=== PATIENT | female | born 1955 | race Caucasian/White ===

== ENCOUNTER 2017-01-04 | Outpatient (CLI) | payer OTHER | END 2017-01-04 23:31 | disposition critical access hospital (66) | CPT/HCPCS: A0425; A0429 ==

== ENCOUNTER 2017-01-05 00:05 | Emergency (ER) | payer OTHER | END 2017-01-05 06:33 | disposition home or self-care (01) | DX: F10.129 Alcohol abuse with intoxication, unspecified (principal); Z91.81 History of falling; F17.200 Nicotine dependence, unspecified, uncomplicated; E07.89 Other specified disorders of thyroid ==

== ENCOUNTER 2017-05-21 09:33 | Outpatient (CLI) | payer OTHER ==
[2017-05-21 18:59] LABS: ALBUMIN/GLOBULIN RATIO 1.2 (1.0-2.2); BILIRUBIN,TOTAL 0.7 mg/dL (0.2-1.0); CREATININE 0.9 mg/dL (0.4-1.0); POTASSIUM 4.2 mmol/L (3.5-5.0); TOTAL PROTEIN 7.9 g/dL (6.7-8.2)
[2017-05-21 19:30] LABS: EOSINOPHILS # (AUTO) 0.1 10^3/uL (0.0-0.7); EOSINOPHILS % (AUTO) 2.4 %; HCT - HEMATOCRIT 43.2 % (37.0-47.0); HGB - HEMOGLOBIN 14.2 g/dL (12.0-16.0); LYMPHOCYTES # (AUTO) 1.9 10^3/uL (1.5-3.5); LYMPHOCYTES % (AUTO) 38.9 %; MEAN CORPUSCULAR HEMOGLOBIN 29.5 pg (27.0-31.0); MEAN CORPUSCULAR HGB CONC 32.8 g/dL (32.0-36.0); MEAN CORPUSCULAR VOLUME 89.8 fL (81.0-99.0); MEAN PLATELET VOLUME 6.9 fL (7.9-10.8); MONOCYTES # (AUTO) 0.4 10^3/uL (0.0-1.0); MONOCYTES % (AUTO) 9.2 %; NEUTROPHILS # (AUTO) 2.3 10^3/uL (1.5-6.6); NEUTROPHILS % (AUTO) 48.5 %; NUCLEATED RED BLOOD CELLS AUTO 0.1 /100WBC; RED BLOOD COUNT 4.81 10^6/uL (4.20-5.40); RED CELL DISTRIBUTION WIDTH 14.1 % (12.0-15.0); UNCORRECTED WHITE BLOOD COUNT 4.8 x10^3/uL; WHITE BLOOD COUNT 4.8 x10^3/uL (4.8-10.8)
== END 2017-05-21 09:34 | disposition home or self-care (01) ==
LOC: LAB.F 09:33
PROVIDERS: ATTEND Physician Assistant Medical
DX: Z79.899 Other long term (current) drug therapy (principal)
CPT/HCPCS: 36415; 80053; 85025

== ENCOUNTER 2020-02-12 09:05 | Inpatient (IN) | payer OTHER ==
--- NOTE | 2020-02-12 09:34 | ED Physician Documentation ---
PD HPI DYSPNEA - Stated complaint Stated Complaint: SOA - Chief complaint Chief Complaint: Cardiac - History obtained from History obtained from: Patient - History of Present Illness Timing - onset: How many weeks ago (1-2) Timing - duration: Weeks (1-2) Timing - details: Gradual onset, Still present Inciting event(s): Other (She has noticed progressive edema of the legs and then hands and whole-body over 1-1/2 to 2 weeks. She has noticed orthopnea and dyspnea on exertion particularly the last several days. She denies any itching's nor any swelling of her lips tongue or throat. She is having some chest tightness with the shortness of breath the last day. She had trouble sleeping last night. No history of heart disease or CHF. Normal urination though may be decreased amount overall.). No: URI Associated symptoms: Bilateral edema (And then progressing to hands abdomen and feeling of dyspnea. She denies any swelling of her lips throat or tongue. She has not had any rash or hives.). No: Fever, Cough, Hemoptysis, Wheezing Similar symptoms before: Has not had sx before Recently seen: Not recently seen Review of Systems Constitutional: denies: Fever, Chills, Myalgias Nose: denies: Rhinorrhea / runny nose, Congestion Throat: denies: Sore throat Cardiac: reports: Chest pain / pressure, Pedal edema. denies: Palpitations, Calf pain Respiratory: reports: Dyspnea. denies: Cough, Wheezing GI: denies: Abdominal Pain, Nausea, Vomiting, Diarrhea : denies: Dysuria, Frequency Musculoskeletal: denies: Neck pain, Back pain Neurologic: reports: Generalized weakness. denies: Focal weakness, Numbness PD PAST MEDICAL HISTORY - Past Medical History Cardiovascular: None Respiratory: None Endocrine/Autoimmune: None - Past Surgical History Past Surgical History: Yes General: Hiatal hernia repair, Other Ortho: Spine surgery - Present Medications Home Medications: Ambulatory Orders Medication Instructions Recorded Confirmed No Known Home Medications 01/05/17 02/12/20 - Allergies Allergies/Adverse Reactions: Allergies Allergy/AdvReac Type Severity Reaction Status Date / Time No Known Drug Allergies Allergy Verified 02/12/20 09:15 - Social History Does the pt smoke?: Yes Smoking Status: Current every day smoker Does the pt drink ETOH?: No Does the pt have substance abuse?: Yes Substance Use and Type: Marijuana - Immunizations Immunizations are current?: Yes - POLST Patient has POLST: No PD ED PE NORMAL - Vitals Vital signs reviewed: Yes - General General: Alert and oriented X 3, No acute distress, Well developed/nourished - HEENT HEENT: Moist mucous membranes, Pharynx benign - Cardiac Cardiac: RRR, No murmur - Respiratory Respiratory: No respiratory distress. No: Clear bilaterally (crackles both sides about 1/3 up. ) - Abdomen Abdomen: Soft, Non tender - Female Female : Deferred - Rectal Rectal: Deferred - Derm Derm: Normal color, Warm and dry - Extremities Extremities: Normal ROM s pain, No calf tenderness / cord, Other (2-3+ edema in both legs up to the knees. There is no redness nor warmth. Calves are nontender.) - Neuro Neuro: Alert and oriented X 3, No motor deficit, No sensory deficit Eye Opening: Spontaneous Motor: Obeys Commands Verbal: Oriented GCS Score: 15 Results - Vitals Vitals: Vital Signs - 24 hr 02/12/20 02/12/20 02/12/20 09:13 09:46 10:36 Temperature 37.0 C Heart Rate 103 H 87 89 Respiratory 26 H 24 26 H Rate Blood Pressure 136/97 H 135/95 H O2 Saturation 98 99 100 02/12/20 02/12/20 11:09 11:22 Temperature Heart Rate 87 99 Respiratory 22 22 Rate Blood Pressure 105/75 125/101 H O2 Saturation 98 100 Oxygen O2 Source Room air - EKG (time done) 09:34 Rate: Rate (enter#) (98) Rhythm: NSR [place]: Normal Intervals: Normal NC QRS: Normal Ischemia: Normal ST segments. No: ST elevation c/w ischemia, ST depression - Labs Labs: Laboratory Tests 02/12/20 02/12/20 02/12/20 09:40 09:40 09:40 WBC 9.4 RBC 4.98 Hgb 14.6 Hct 44.8 MCV 90.0 MCH 29.3 MCHC 32.6 RDW 14.2 Plt Count 315 MPV 8.6 Neut # (Auto) 6.1 Lymph # (Auto) 2.4 Cooke # (Auto) 0.7 Eos # (Auto) 0.1 Baso # (Auto) 0.1 Absolute Nucleated RBC 0.00 Nucleated RBC % 0.0 Sodium 134 L Potassium 3.7 Chloride 107 Carbon Dioxide 19 L Anion Gap 8.0 BUN 29 H Creatinine 1.1 H Estimated GFR (MDRD) 50 L Glucose 100 Calcium 8.7 Magnesium Total Bilirubin 0.7 AST 66 H ALT 56 Alkaline Phosphatase 92 Troponin I High Sens 47.9 H* B-Natriuretic Peptide Total Protein 6.6 L Albumin 3.2 Globulin 3.4 Albumin/Globulin Ratio 0.9 L Lipase 27 Urine Color Urine Clarity Urine pH Ur Specific [place] Urine Protein Urine Glucose (UA) Urine Ketones Urine Occult Blood Urine Nitrite Urine Bilirubin Urine Urobilinogen Ur Leukocyte Esterase Urine RBC Urine WBC Urine WBC Clumps Ur Squamous Epith Cells Urine Bacteria Ur Microscopic Review Urine Culture Comments Urine Opiates Screen Ur Oxycodone Screen Urine Methadone Screen Ur Propoxyphene Screen Ur Barbiturates Screen Ur Tricyclics Screen Ur Phencyclidine Scrn Ur Amphetamine Screen U Methamphetamines Scrn U Benzodiazepines Scrn Urine Cocaine Screen U Cannabinoids Screen Ethyl Alcohol 02/12/20 02/12/20 02/12/20 09:40 09:40 11:05 WBC RBC Hgb Hct MCV MCH MCHC RDW Plt Count MPV Neut # (Auto) Lymph # (Auto) [place]oke # (Auto) Eos # (Auto) Baso # (Auto) Absolute Nucleated RBC Nucleated RBC % Sodium Potassium Chloride Carbon Dioxide Anion Gap BUN Creatinine Estimated GFR (MDRD) Glucose Calcium Magnesium 2.4 Total Bilirubin AST ALT Alkaline Phosphatase Troponin I High Sens B-Natriuretic Peptide 2505 H Total Protein Albumin Globulin Albumin/Globulin Ratio Lipase Urine Color YELLOW Urine Clarity CLEAR Urine pH 6.0 Ur Specific Redkey 1.015 Urine Protein 30 H Urine Glucose (UA) NEGATIVE Urine Ketones NEGATIVE Urine Occult Blood TRACE-LYSE Urine Nitrite NEGATIVE Urine Bilirubin NEGATIVE Urine Urobilinogen 0.2 (NORMAL) Ur Leukocyte Esterase NEGATIVE Urine RBC 0-5 Urine WBC 0-3 Urine WBC Clumps PRESENT Ur Squamous Epith Cells RARE Squamous Urine Bacteria Rare Ur Microscopic Review INDICATED Urine Culture Comments NOT INDICATED Urine Opiates Screen NEGATIVE Ur Oxycodone Screen NEGATIVE Urine Methadone Screen NEGATIVE Ur Propoxyphene Screen NEGATIVE Ur Barbiturates Screen NEGATIVE Ur Tricyclics Screen NEGATIVE Ur Phencyclidine Scrn NEGATIVE Ur Amphetamine Screen POSITIVE H U Methamphetamines Scrn POSITIVE H U Benzodiazepines Scrn NEGATIVE Urine Cocaine Screen NEGATIVE U Cannabinoids Screen NEGATIVE Ethyl Alcohol < 5.0 - Rads (name of study) chest Radiology: Prelim report reviewed, See rad report (bilateral pleural effusions and atelectasis.) PD MEDICAL DECISION MAKING - ED course Complexity details: considered differential (New onset CHF in the last couple of weeks. It does not appear to be nephrotic or renal failure or liver. Presume new onset heart failure without known heart disease. Her sats are good but she is having significant symptoms. Concern would be ischemic cause that she has had chest tightness particularly of the last couple of days. Needs to be evaluated for potential ischemic heart disease/ACS as well as evaluation of the new onset CHF.), d/w patient Departure - Departure Disposition: ED Place in Observation Clinical Impression: New onset of congestive heart failure, Chest pain, rule out acute myocardial infarction Dyspnea Qualifiers: Dyspnea type: shortness of breath Qualified Code(s): R06.02 - Shortness of breath Condition: Stable Record reviewed to determine appropriate education?: Yes Discharge Date/Time: 02/12/20 12:59
[2020-02-12 09:51] LABS: BASOPHILS # (AUTO) 0.1 10^3/uL (0.0-0.1); BASOPHILS % (AUTO) 0.7 %; EOSINOPHILS # (AUTO) 0.1 10^3/uL (0.0-0.7); EOSINOPHILS % (AUTO) 1.3 %; HGB - HEMOGLOBIN 14.6 g/dL (12.0-16.0); LYMPHOCYTES # (AUTO) 2.4 10^3/uL (1.5-3.5); MEAN CORPUSCULAR HEMOGLOBIN 29.3 pg (27.0-31.0); MEAN CORPUSCULAR HGB CONC 32.6 g/dL (32.0-36.0); MEAN PLATELET VOLUME 8.6 fL (7.9-10.8); MONOCYTES # (AUTO) 0.7 10^3/uL (0.0-1.0); MONOCYTES % (AUTO) 7.2 %; NEUTROPHILS # (AUTO) 6.1 10^3/uL (1.5-6.6); NEUTROPHILS % (AUTO) 65.5 %; PLT - PLATELET COUNT 315 10^3/uL (130-450); RED BLOOD COUNT 4.98 10^6/uL (4.20-5.40); RED CELL DISTRIBUTION WIDTH 14.2 % (12.0-15.0); WHITE BLOOD COUNT 9.4 x10^3/uL (4.8-10.8)
[2020-02-12] MEDS ORDERED: FUROSEMIDE 40 MG/4 ML VIAL IVP STA (10:03)
[2020-02-12 10:07] LABS: ALBUMIN 3.2 g/dL (3.2-5.5); ALBUMIN/GLOBULIN RATIO 0.9 (1.0-2.2); BILIRUBIN,TOTAL 0.7 mg/dL (0.2-1.0); CALCIUM 8.7 mg/dL (8.5-10.3); CREATININE 1.1 mg/dL (0.4-1.0); TOTAL PROTEIN 6.6 g/dL (6.7-8.2)
--- NOTE | 2020-02-12 10:11 | XRAY Report ---
Reason: Chest pain Procedure Date: 02/12/2020 Accession Number: [id number] / [id number] Procedure: XR - Chest 1 View X-Ray CPT Code: 07309 Final Report FULL RESULT: EXAM: CHEST RADIOGRAPHY EXAM DATE: 02/12/2020 09:58 AM. CLINICAL HISTORY: Chest pain. COMPARISON: RIBS 3 VIEW BILAT 01/05/2017 1:09 AM. TECHNIQUE: 1 view. FINDINGS: Lungs/Pleura: There are small bibasal pleural effusions with bibasal compressive atelectasis. There is no consolidation. There are no pneumothoraces. Mediastinum: There is mild cardiac enlargement. Other: There is severe bilateral glenohumeral osteoarthritis. IMPRESSION: Small bilateral pleural effusions with compressive atelectasis of the lung bases. RADIA
[2020-02-12 10:20] LABS: MAGNESIUM 2.4 mg/dL (1.7-2.8)
[2020-02-12] MEDS ORDERED: NITROGLYCERIN 2% PASTE TOP STA (11:09)
[2020-02-12 11:14] LABS: MUDS CUTOFF CONCENTRATIONS CUTOFF CONC BELOW:
[2020-02-12 11:17] LABS: BILIRUBIN,URINE NEGATIVE (NEGATIVE); GLUCOSE, URINE (UA) NEGATIVE (NEGATIVE); KETONES,URINE (UA) NEGATIVE (NEGATIVE); LEUKOCYTE ESTERASE, URINE NEGATIVE (NEGATIVE); NITRITE,URINE NEGATIVE (NEGATIVE); OCCULT BLOOD,URINE TRACE-LYSE (NEGATIVE); PROTEIN,URINE 30 mg/dL (NEGATIVE); UROBILINOGEN,URINE 0.2 (NORMAL) E.U./dL (NORMAL)
[2020-02-12 11:18] LABS: CLARITY,URINE CLEAR (CLEAR)
[2020-02-12 11:28] LABS: AMPHETAMINE SCREEN,URINE POSITIVE (NEGATIVE); BENZODIAZEPINES SCREEN, URINE NEGATIVE (NEGATIVE); COCAINE SCREEN URINE NEGATIVE (NEGATIVE); METHADONE SCREEN, URINE NEGATIVE (NEGATIVE); METHAMPHETAMINES SCREEN, URINE POSITIVE (NEGATIVE); OPIATE SCREEN, URINE NEGATIVE (NEGATIVE); OXYCODONE SCREEN, URINE NEGATIVE (NEGATIVE); PROPOXYPHENE SCREEN, URINE NEGATIVE (NEGATIVE); TRICYCLIC ANTIDEPRESSANT,URINE NEGATIVE (NEGATIVE)
[2020-02-12 11:32] LABS: BACTERIA,URINE Rare /HPF (None Seen); RBC,URINE 0-5 /HPF (0-5); SQUAMOUS EPITHELIAL CELL,UR RARE Squamous (<= Few); WBC CLUMPS,URINE PRESENT
[2020-02-12] MEDS ORDERED: oxyCODONE 5 MG TABLET PO PRN (11:32)
[2020-02-12] MEDS ORDERED: SODIUM CHLORIDE FLUSH 0.9% 10 ML SYRINGE IVP PRN (11:32)
[2020-02-12] MEDS ORDERED: ONDANSETRON ODT 4 MG TABLET TL PRN (11:32)
[2020-02-12] MEDS ORDERED: ACETAMINOPHEN 325 MG TABLET PO PRN (11:32)
[2020-02-12] MEDS ORDERED: MORPHINE 2 MG/ML CARPUJECT IVP PRN (11:32)
--- NOTE | 2020-02-12 12:57 | HISTORY & PHYSICAL EXAMINATION ---
Chief Complaint - Chief Complaint Chief Complaint: Shortness of breath on exertion History of Present Illness - Admitted From Admitted From:: Emergency department - History Obtained From Records Reviewed: Emergency department History obtained from: Patient and ED physician, Dr. Arizmendi Exam Limitations: None - History of Present Illness HPI Comment/Other: Patient is a 64-year-old female with no known past medical history who presents with about 1 week of progressively worsening shortness of breath, dyspnea on exertion, and orthopnea.She does not recall any specific inciting events to the symptoms, and does not recall any other upper respiratory infections, including no fever, no cough, congestion, runny nose, or other symptoms of flu.She also notes that her hands bilaterally started to turn red about 2 to 3 days ag o.Denies any pain in the bilateral hands. She does also endorse a variable and intermittent chest heaviness that she describes as similar to heartburn, located in the upper left and right side of the chest. She does not recall any particular pattern such as worse with exertion or any other alleviating factors. She also notes pants getting tighter, legs are swelling, but has avoided coming in because of the current coronavirus pandemic fearing that she would get exposed if she came to the hospital.Eventually when the symptoms became too much to bear she came to the emergency room for evaluation. In the ER, she was saturating well on room air, with relatively normal vital signs, and an EKG unremarkable for any acute findings. Chest x-ray Showed bilateral small pleural effusions. Her BNP was elevated however, as was her troponin. She was given a single dose of Lasix IV, and hospital medicine admission was requested for management of new diagnosis of CHF and ruling out MD. History - Past Medical History Cardiovascular: reports: None Respiratory: reports: None Endocrine/Autoimmune: reports: None GI: reports: GERD MRSA Hx?: No - Past Surgical History General: reports: Hiatal hernia repair, Other Ortho: reports: Spine surgery - Family & Social History Family History: Mother: Hypertension, Father: Hypertension Living arrangement: At home Living Situation: Alone Social History Notes: Patient moved to [facility] about 6 years ago. She is a retired nurse. She feels he has a strong support system with family nearby, a son on the [place], and several close friends. - Substance History Use: Uses substance without health or social issues: Amphetamine (Patient states that she used methamphetamine about a week ago to help alleviate her symptoms, but denies being a regular user currently or in the past) Dependence: Experiences withdrawal or developed tolerances: Tobacco Tobacco Details: Cigarettes (Half pack a day for many years) - POLST Patient has POLST: No POLST Status: Full Code (Wants to attempt resuscitation and CPR, though she notes this is not consistent with what she has in her living will. She states that she would not want heroic measures after initial resuscitation if it is not successful.She would not want prolonged intubation.) Meds/Allgy - Home Medications Home Medications: Ambulatory Orders Medication Instructions Recorded Confirmed No Known Home Medications 01/05/17 02/12/20 - Allergies Allergies/Adverse Reactions: Allergies Allergy/AdvReac Type Severity Reaction Status Date / Time No Known Drug Allergies Allergy Verified 02/12/20 09:15 Review of Systems - Constitutional Constitutional: reports: Fatigue. denies: Fever, Chills, Weakness - Cardiovascular Cariovascular: reports: Chest pain, Edema, Exertional dyspnea, Decr. exercise tolerance, Orthopnea. denies: Syncope - Respiratory Respiratory: reports: Orthopnea, SOB with exertion. denies: Cough, Wheezing, Snoring, Hemoptysis, SOB at rest - Gastrointestinal Gastrointestinal: reports: Abdominal pain - Neurological Neurological: reports: General weakness, Focal weakness Prior Level of Functionality: Fully independent Exam - Vital Signs Reviewed Vital Signs: Yes Vital Signs: Vital Signs x48h Temp Pulse Resp BP Pulse Ox 02/12/20 12:14 96 20 132/98 H 100 02/12/20 11:22 99 22 125/101 H 100 02/12/20 11:09 87 22 105/75 98 02/12/20 10:36 89 26 H 100 02/12/20 09:46 87 24 135/95 H 99 02/12/20 09:13 37.0 C 103 H 26 H 136/97 H 98 - Physical Exam General Appearance: positive: No acute distress Eyes Bilateral: positive: Normal inspection, PERRL ENT: positive: ENT inspection nml, Pharynx nml, No signs of dehydration Neck: positive: Nml inspection, Thyroid nml Respiratory: positive: Chest non-tender, No respiratory distress, Breath sounds nml Cardiovascular: positive: Regular rate & rhythm, No murmur, No gallop Peripheral Pulses: positive: 2+ Abdomen: positive: Non-tender, No organomegaly, Nml bowel sounds Skin: positive: Other (Significant rubor of bilateral hands, primarily on the dorsal aspect. Not warm to touch, blanching.) Extremities: positive: Pedal edema (2-3+ pitting edema bilaterally extending to the mid tibia) Neurologic/Psychiatric: positive: Oriented x3, CN's nml (2-12), Motor nml Conclusion/Plan - Problem List (1) Chest pain, rule out acute myocardial infarction Conclusion/Plan: Initial cardiac enzyme is elevated,Though no ST segment abnormalities on EKG. BNP is also elevated, along with bilateral pedal edema fits the picture of acute onset of CHF. In a echocardiogram to evaluate further, continue to rule out for acute cardiac event, and ultimately may need a ischemic work-up to be determined as to whether this can be deferred to outpatient. Start daily ASA, statin, DUKE-I, check lipids and hemoglobin A1c in the morning. Patient responded to 1 dose of Lasix IV in the ED, will start oral Lasix in the morning. (2) Dyspnea Conclusion/Plan: As above, likely CHF. No suspicion for viral pneumonia, community-acquired pneumonia, etc. Qualifiers: Dyspnea type: shortness of breath Qualified Code(s): R06.02 - Shortness of breath; R06.00 - Dyspnea, unspecified; R06.01 - Orthopnea (3) New onset of congestive heart failure Conclusion/Plan: As above, echocardiogram, Lasix p.o., monitor ins and outs. Patient reports to me today that she does not drink very much, denies a significant alcohol history, however a note alcoholism in the chart, and she says she used methamphetamine once this week to help with her symptoms, and at her age, it is unusual for somebody to use this only once. In short, I am still suspicious of possible substance induced cardiomyopathy whether it is alcohol or methamphetamine, but will continue to evaluate. Pending results of echo, start betablocker, DUKE-I. - Lab Results Lab results reviewed: Yes Fish Bones: 02/12/20 09:40 02/12/20 09:40 - Diagnostic Imaging Results Diagnostic Imaging Results: positive: Final report reviewed - EKG Results EKG Interpreted Independently: Yes Core Measures - Anticipated LOS I expect patient to be DC'd or transferred within 96 hours.: Yes - DVT/VTE - Prophylaxis VTE/DVT Device ordered at admit?: No VTE/DVT Prophylaxis med ordered at admit?: Yes - AMI - Statin at Admit Aspirin Prescribed on Admit: Yes
[2020-02-12] MEDS: ASPIRIN CHEW 81 MG TABLET PO SCH (13:42)
[2020-02-12] MEDS: SODIUM CHLORIDE FLUSH 0.9% 10 ML SYRINGE IVP SCH ×2 (16:15→23:55)
[2020-02-12] MEDS ORDERED: GI COCKTAIL 120 ML BOTTLE PO PRN (18:52)
[2020-02-12] MEDS: FAMOTIDINE 20 MG TABLET PO SCH (20:47)
[2020-02-12] MEDS: ATORVASTATIN 40 MG TABLET PO SCH (20:47)
[2020-02-13 05:35] LABS: HB2 TOTAL 15.5 g/dL; HEMOGLOBIN A1C 0.65 g/dL
[2020-02-13 05:40] LABS: BUN - BLOOD UREA NITROGEN 35 mg/dL (6-20); CALCIUM 8.4 mg/dL (8.5-10.3); CARBON DIOXIDE - CO2 21 mmol/L (21-32); CHLORIDE 105 mmol/L (101-111); CHOL/HDL RATIO 3.4 (<4.4); CHOLESTEROL 139 mg/dL; CREATININE 1.1 mg/dL (0.4-1.0); GLUCOSE 154 mg/dL (70-100); HDL CHOLESTEROL 41 mg/dL; LDL CHOLESTEROL,CALCULATED 74 mg/dL; LDL/HDL RATIO 1.8 (<4.4); SODIUM 135 mmol/L (135-145); VLDL CHOLESTEROL 24 mg/dL
[2020-02-13] MEDS ORDERED: POTASSIUM CHLORIDE 20 MEQ TABLET PO ONE (06:57)
--- NOTE | 2020-02-13 09:59 | PHARMACY PROGRESS NOTE ---
- Best Possible Medication History Admit Date and Time: 02/12/20 1132 Processed by: Nursing Medication History completed: Yes As the person ultimately responsible for medication therapy, providers are able to order a medication from an existing home medication list in [facility] via the "Reconcile Routine" prior to Confirmation of that medication by client support administrator. Such practice is discouraged except when the physician, in their clinical judgment, deems that a medical need exists for a medication without regard to previous use.
[2020-02-13] MEDS: ASPIRIN CHEW 81 MG TABLET PO SCH (10:06)
[2020-02-13] MEDS: FUROSEMIDE 20 MG TABLET PO SCH (10:06)
[2020-02-13] MEDS: FAMOTIDINE 20 MG TABLET PO SCH ×2 (10:07→20:41)
[2020-02-13] MEDS: SODIUM CHLORIDE FLUSH 0.9% 10 ML SYRINGE IVP SCH ×3 (10:07→23:47)
[2020-02-13] MEDS: lisinopriL 5 MG TABLET PO SCH (10:07)
[2020-02-13] MEDS: ENOXAPARIN 40 MG/0.4 ML SYRINGE SUBQ SCH (10:13)
[2020-02-13] MEDS ORDERED: IOVERSOL 320 100 ML VIAL IVP ONE ×2 (11:28→12:40)
[2020-02-13] MEDS: LORazepam 1 MG TABLET PO PRN ×2 (11:50→23:20)
[2020-02-13] MEDS ORDERED: LORazepam 1 MG TABLET ONE (11:52)
--- NOTE | 2020-02-13 13:21 | PROVIDER PROGRESS NOTE ---
Subjective - Prog Note Date Prog Note Date: 02/13/20 Prog Note Time: 13:19 - Subjective Pt reports feeling: Improved, Worse Subjective: Patient states she feels more short of breath today than she did yesterday despite the fact that initially she responded well to the Lasix Objective - Vital Signs/Intake & Output Reviewed Vital Signs: Yes Vital Signs: Vital Signs x48h Temp Pulse Resp BP Pulse Ox 02/13/20 12:18 96.8 C H 103 H 18 122/90 H 100 02/13/20 08:41 36.5 C 93 20 118/93 H 98 Intake & Output: Intake & Output 02/10/20 02/11/20 02/12/20 02/13/20 23:59 23:59 23:59 23:59 Intake Total 590 300 Output Total 1450 225 Balance -860 75 - Objective General Appearance: positive: No acute distress Eyes Bilateral: positive: Normal inspection ENT: positive: ENT inspection nml, Pharynx nml, No signs of dehydration Respiratory: positive: Breath sounds nml, Other (Mildly tachypneic) Cardiovascular: positive: Regular rate & rhythm, No murmur, No gallop Peripheral Pulses: 2+ Radial (R), 2+ Radial (L) Abdomen: positive: Non-tender, No organomegaly, Nml bowel sounds Skin: positive: Other (Bilateral erythema of the hands, and consistent with cellulitis, blanching and circumferential without edema more suggestive of vascular etiology) Extremities: positive: Pedal edema Neurologic/Psychiatric: positive: Oriented x3, CN's nml (2-12) - Lab Results Fish Bones: 02/12/20 09:40 02/13/20 04:45 Other Labs: Lab Results x24hrs 02/13/20 02/13/20 02/12/20 Range/Units 04:45 04:45 19:04 Sodium 135 (135-145) mmol/L Potassium 3.5 (3.5-5.0) mmol/L Chloride 105 (101-111) mmol/L Carbon Dioxide 21 (21-32) mmol/L Anion Gap 9.0 (6-13) BUN 35 H (6-20) mg/dL Creatinine 1.1 H (0.4-1.0) mg/dL Estimated GFR (MDRD) 50 L (>89) Glucose 154 H (70-100) mg/dL Glycated Hemoglobin 6.0 (4.6-6.2) % Estim Average Glucose 126 H (70-100) Calcium 8.4 L (8.5-10.3) mg/dL Troponin I High Sens 48.5 H* (2.3-14.8) ng/L Triglycerides 120 ( - 149) mg/dL Cholesterol 139 ( - 199) mg/dL LDL Cholesterol, Calc 74 ( - 129) mg/dL VLDL Cholesterol 24 mg/dL HDL Cholesterol 41 L (60 - ) mg/dL LDL/HDL Ratio 1.8 (<4.4) Cholesterol/HDL Ratio 3.4 (<4.4) 02/12/20 Range/Units 15:15 Sodium (135-145) mmol/L Potassium (3.5-5.0) mmol/L Chloride (101-111) mmol/L Carbon Dioxide (21-32) mmol/L Anion Gap (6-13) BUN (6-20) mg/dL Creatinine (0.4-1.0) mg/dL Estimated GFR (MDRD) (>89) Glucose (70-100) mg/dL Glycated Hemoglobin (4.6-6.2) % Estim Average Glucose (70-100) Calcium (8.5-10.3) mg/dL Troponin I High Sens 46.2 H* (2.3-14.8) ng/L Triglycerides ( - 149) mg/dL Cholesterol ( - 199) mg/dL LDL Cholesterol, Calc ( - 129) mg/dL VLDL Cholesterol mg/dL HDL Cholesterol (60 - ) mg/dL LDL/HDL Ratio (<4.4) Cholesterol/HDL Ratio (<4.4) - Diagnostic Imaging Diagnostic Imaging Results: positive: Read independently Assessment/Plan - Problem List (1) Dyspnea Impression: Initially presenting with symptoms and lab findings consistent with CHF. Responded to Lasix initially in the ER and upon admission Currently complaining of worsening shortness of breath Given that echocardiogram is unavailable through the weekend, and cannot completely confirm a diagnosis of CHF, would like to get a CT angiogram to rule out a PE Meanwhile, continue empiric treatments for CHF with DUKE inhibitor,Add beta- sandy when acute exacerbation can be more safely ruled out Qualifiers: Dyspnea type: shortness of breath Qualified Code(s): R06.02 - Shortness of breath; R06.00 - Dyspnea, unspecified; R06.01 - Orthopnea (2) Chest pain, rule out acute myocardial infarction Impression: Troponin checked x4, only minimally elevated more consistent with demand ischemia than acute coronary syndrome Would benefit from an outpatient stress test when this is available, and certainly would like to get echocardiogram when this is available, but these are limited given the current circumstances If still in-house on Saturday when echocardiogram is available, will pursue and follow-up results, otherwise may need to defer for outpatient if discharged prior (3) New onset of congestive heart failure Impression: As above
--- NOTE | 2020-02-13 14:51 | CT Report ---
Reason: Shortness of breath, hypoxia Procedure Date: 02/13/2020 Accession Number: [id number] / [id number] Procedure: CT - ANGIO CHEST W/WO CPT Code: Final Report FULL RESULT: EXAM: CT ANGIOGRAM CHEST EXAM DATE: 02/13/2020 12:20 PM. CLINICAL HISTORY: Shortness of breath, hypoxia. COMPARISON: CHEST 1 VIEW 02/12/2020 9:40 AM. TECHNIQUE: Routine helical imaging was performed through the chest in the pulmonary arterial phase. IV Contrast: OPTIRAY 320. Reconstructions: Coronal 3-D MIP reconstructions. Sagittal and coronal. In accordance with CT protocol optimization, one or more of the following dose reduction techniques were utilized for this exam: automated exposure control, adjustment of mA and/or KV based on patient size, or use of iterative reconstructive technique. FINDINGS: Pulmonary Arteries: Diagnostic quality: Adequate through the segmental arteries. No evidence for acute or chronic pulmonary emboli. RV/LV is within normal limits. There is no interventricular septal bowing. There is mild reflux of contrast material in the IVC and hepatic veins. Lungs/Pleura: Moderate right greater than left pleural effusions. No pneumothorax. Moderate respiratory motion artifact. Moderate dependent reticular bibasilar opacities most consistent with atelectasis. No confluent consolidation. Mild dependent and nondependent interlobular septal thickening consistent with interstitial edema. No central airway obstruction. Mediastinum: Mild cardiomegaly. No santiago lymphadenopathy or esophageal dilation. Thoracic Aorta: Unremarkable. Upper Abdomen: Unremarkable. Other: The visualized chest wall is unremarkable. Mild multilevel upper and lower thoracic degenerative disk disease. Minimal chronic appearing anterior superior wedge compression deformity L1 vertebral body. IMPRESSION: 1. There is no pulmonary embolism. 2. Congestive heart failure. Interstitial lung edema. Moderate right greater than left pleural effusions. Mild cardiomegaly. Contrast reflux into the IVC and hepatic veins consistent with decreased cardiac output. 3. Mild right greater than left dependent basilar airspace opacities consistent with atelectasis. RADIA
[2020-02-13] MEDS ORDERED: FUROSEMIDE 40 MG/4 ML VIAL IVP SCH (16:00)
[2020-02-13] MEDS: ATORVASTATIN 40 MG TABLET PO SCH (20:41)
[2020-02-14 06:54] LABS: CALCIUM 8.3 mg/dL (8.5-10.3); CREATININE 1.1 mg/dL (0.4-1.0)
[2020-02-14 07:32] VITALS: BP 113/76
[2020-02-14] MEDS ORDERED: POTASSIUM CHLORIDE 20 MEQ TABLET PO SCH (08:18)
[2020-02-14] MEDS: ENOXAPARIN 40 MG/0.4 ML SYRINGE SUBQ SCH (08:31)
[2020-02-14] MEDS: FAMOTIDINE 20 MG TABLET PO SCH (08:31)
[2020-02-14] MEDS: ASPIRIN CHEW 81 MG TABLET PO SCH (08:31)
[2020-02-14] MEDS: FUROSEMIDE 20 MG TABLET PO SCH (08:31)
[2020-02-14] MEDS: lisinopriL 5 MG TABLET PO SCH (08:31)
[2020-02-14] MEDS: SODIUM CHLORIDE FLUSH 0.9% 10 ML SYRINGE IVP SCH (08:32)
[2020-02-14] MEDS ORDERED: polyethylene glycoL 3350 17 GM PACKET PO SCH (09:00)
--- NOTE | 2020-02-14 11:57 | Discharge Plan ---
Discharge Plan Problem Reviewed?: Yes Disposition: Home, Self Care Condition: Stable Prescriptions: Furosemide [Lasix] 20 mg PO BID #60 tablet lisinopriL [Zestril] 5 mg PO DAILY #30 tablet Metoprolol Tartrate [Lopressor] 12.5 mg PO BID #30 tablet Potassium Chloride 10 meq PO DAILY #30 tablet.er Instruction Topics: Heart Failure Warning Signs, Heart Failure Tracking Weight, Heart Failure Being Active, Heart Failure Diet Changes, COVID-19 [facility], COVID-19 [facility] Statement No Smoking: If you smoke, Please STOP! Call for help.
--- NOTE | 2020-02-14 14:47 | DISCHARGE SUMMARY ---
Discharge Summary Admit Date: 02/12/20 Discharge Date: 02/14/20 Discharging Provider: Pedro Luis Florian MD Primary Care Provider: None Code Status: Attempt Resuscitation Condition at Discharge: Stable Discharge Disposition: 01 Home, Self Care - DIAGNOSES Admission Diagnoses: Acute CHF exacerbation Shortness of breath Chest tightness Discharge Diagnoses with Status of Each Condition: Acute exacerbation of CHFimproved Shortness of breathimproved Chest painresolved - HPI History of Present Illness: Patient is a 64-year-old female with no known past medical history who presents with about 1 week of progressively worsening shortness of breath, dyspnea on exertion, and orthopnea.She does not recall any specific inciting events to the symptoms, and does not recall any other upper respiratory infections, including no fever, no cough, congestion, runny nose, or other symptoms of flu.She also notes that her hands bilaterally started to turn red about 2 to 3 days ago.Denies any pain in the bilateral hands. She does also endorse a variable and intermittent chest heaviness that she describes as similar to heartburn, located in the upper left and right side of the chest. She does not recall any particular pattern such as worse with exertion or any other alleviating factors. She also notes pants getting tighter, legs are swelling, but has avoided coming in because of the current coronavirus pandemic fearing that she would get exposed if she came to the hospital.Eventually when the symptoms became too much to bear she came to the emergency room for evaluation. In the ER, she was saturating well on room air, with relatively normal vital signs, and an EKG unremarkable for any acute findings. Chest x-ray Showed bilateral small pleural effusions. Her BNP was elevated however, as was her troponin. She was given a single dose of Lasix IV, and hospital medicine admission was requested for management of new diagnosis of CHF and ruling out IA. - HOSPITAL COURSE Hospital Course: Patient was admitted for presumed new diagnosis of CHF with exacerbation. She was given a single dose of Lasix 40 mg in the IV, after which the patient felt significantly better but was continuing to be hypoxic at 2 L of oxygen through the night. By the following morning, patient states that she felt worse than the day prior, despite getting another 20 mg of oral Lasix in the morning. For this reason, and because there was no definitive evidence of CHF with no available echocardiogram over the weekend, we performed a CT angiogram of the chest to evaluate and rule out a pulmonary embolus. CT angiogram showed evidence of pleural effusion but no pulmonary embolus. She was given another dose of IV Lasix, and she felt much better and was on room air by the day of discharge. She was given the option to await echocardiogram availability on Saturday, but because she was on room air, felt much better, she opted to go home. She was advised to follow-up with PCP, which she will obtain by calling her [place] insurance investigator, and have outpatient echocardiogram and may need a outpatient stress test as well pending the results of the echocardiogram. She was given the typical CHF medications including beta-sandy, DUKE inhibitor, and aspirin. Her cholesterol level was normal and she was continued on her home statin. - ALLERGIES Allergies/Adverse Reactions: Allergies Allergy/AdvReac Type Severity Reaction Status Date / Time No Known Drug Allergies Allergy Verified 02/12/20 09:15 - MEDICATIONS Home Medications: Ambulatory Orders Medication Instructions Recorded Confirmed Acetaminophen [Tylenol] 650 mg PO Q4HR PRN tablet 02/14/20 Aspirin Chewable [[place] 81 mg PO DAILY tablet 02/14/20 Aspirin] Atorvastatin [Lipitor] 40 mg PO QPM tablet 02/14/20 Famotidine [Pepcid] 20 mg PO BID tablet 02/14/20 Furosemide [Lasix] 20 mg PO BID #60 tablet 02/14/20 Metoprolol Tartrate [Lopressor] 12.5 mg PO BID #30 tablet 02/14/20 Potassium Chloride 10 meq PO DAILY #30 tablet.er 02/14/20 lisinopriL [Zestril] 5 mg PO DAILY #30 tablet 02/14/20 - PHYSICAL EXAM AT DISCHARGE General Appearance: positive: No acute distress Eyes Bilateral: positive: Normal inspection Respiratory: positive: Chest non-tender, No respiratory distress, Breath sounds nml. negative: Wheezes, Rales, Rhonchi Cardiovascular: positive: Regular rate & rhythm, No murmur, No gallop Extremities: positive: Pedal edema (1+ pitting edema, improved from 3+ on admission) Neurologic/Psychiatric: positive: Oriented x3, CN's nml (2-12) - LABS Result Diagrams: 02/12/20 09:40 02/14/20 06:40 - DIAGNOSTIC IMAGING Diagnostic Imaging Results: Final report reviewed, Read independently - FOLLOW UP Follow Up: Establish and follow-up with PCP - TIME SPENT Time Spent in Discharge (Minutes): 41
== END 2020-02-14 13:15 | disposition home or self-care (01) | DRG 293 ==
LOC: ED 09:05 → MS2 11:32 → OBSVTOIN 02-13 16:17
PROVIDERS: ADMIT Family Medicine Sports Medicine; ATTEND Family Medicine Sports Medicine
DX: I50.9 Heart failure, unspecified (principal); R79.89 Other specified abnormal findings of blood chemistry; R09.02 Hypoxemia; K21.9 Gastro-esophageal reflux disease without esophagitis; F17.210 Nicotine dependence, cigarettes, uncomplicated; Z72.89 Other problems related to lifestyle
CPT/HCPCS: 36415; 71045; 71275; 80048; 80053; 80061; 80306; 80320; 81001; 83036; 83690; 83735; 83880; 84484; 85025; 93005; 96372; 96374; 96376; 99284; 99285; A9270; G0378; J1650; J8499; Q9967; 81003; 83721; 87086

== ENCOUNTER 2020-03-01 13:44 | Outpatient (CLI) | payer OTHER ==
[2020-03-01 14:11] LABS: ALBUMIN 3.4 g/dL (3.2-5.5); ALBUMIN/GLOBULIN RATIO 0.9 (1.0-2.2); BILIRUBIN,TOTAL 0.7 mg/dL (0.2-1.0); CALCIUM 8.9 mg/dL (8.5-10.3); CREATININE 1.1 mg/dL (0.4-1.0); MAGNESIUM 2.1 mg/dL (1.7-2.8); TOTAL PROTEIN 7.3 g/dL (6.7-8.2)
== END 2020-03-01 13:45 | disposition home or self-care (01) ==
LOC: LAB 13:44
PROVIDERS: ATTEND Physician Assistant Medical
DX: I50.9 Heart failure, unspecified (principal); R00.2 Palpitations; I21.3 ST elevation (STEMI) myocardial infarction of unspecified site
CPT/HCPCS: 36415; 80053; 83735; 83880; 84484

== ENCOUNTER 2020-03-23 10:24 | Outpatient (CLI) | payer OTHER | END 2020-03-23 10:25 | disposition home or self-care (01) | LOC: DI 10:24 | PROVIDERS: ATTEND Family Medicine | DX: I21.3 ST elevation (STEMI) myocardial infarction of unspecified site (principal); I50.9 Heart failure, unspecified; I07.1 Rheumatic tricuspid insufficiency; I27.20 Pulmonary hypertension, unspecified | CPT/HCPCS: 93306 ==

== ENCOUNTER 2020-04-11 14:35 | Outpatient (CLI) | payer OTHER ==
[2020-04-11 20:13] LABS: CALCIUM 9.4 mg/dL (8.5-10.3); CREATININE 1.2 mg/dL (0.4-1.0)
== END 2020-04-11 14:36 | disposition home or self-care (01) ==
LOC: LAB.S 14:35
PROVIDERS: ATTEND Family Medicine
DX: I50.9 Heart failure, unspecified (principal)
CPT/HCPCS: 36415; 80048; 83880

== ENCOUNTER 2020-04-23 13:58 | Outpatient (CLI) | payer OTHER ==
[2020-04-23 16:55] LABS: MEAN CORPUSCULAR HEMOGLOBIN 28.6 pg (27.0-31.0); MEAN CORPUSCULAR HGB CONC 32.1 g/dL (32.0-36.0); MEAN CORPUSCULAR VOLUME 89.1 fL (81.0-99.0); MEAN PLATELET VOLUME 8.8 fL (7.9-10.8); RED BLOOD COUNT 5.24 10^6/uL (4.20-5.40); RED CELL DISTRIBUTION WIDTH 14.6 % (12.0-15.0)
[2020-04-23 17:02] LABS: INR 0.9 (0.8-1.2); PT - PROTHROMBIN TIME 10.8 secs (9.9-12.6)
[2020-04-23 17:30] LABS: ALBUMIN/GLOBULIN RATIO 1.1 (1.0-2.2); BILIRUBIN,TOTAL 0.9 mg/dL (0.2-1.0); CALCIUM 9.3 mg/dL (8.5-10.3); CREATININE 1.2 mg/dL (0.4-1.0); TOTAL PROTEIN 7.5 g/dL (6.7-8.2)
== END 2020-04-23 13:59 | disposition home or self-care (01) ==
LOC: LAB.S 13:58
PROVIDERS: ATTEND Internal Medicine Cardiovascular Disease
DX: I50.9 Heart failure, unspecified (principal)
CPT/HCPCS: 36415; 80053; 83721; 85027; 85610

== ENCOUNTER 2020-05-19 14:39 | Outpatient (CLI) | payer OTHER ==
[2020-05-19 19:10] LABS: BASOPHILS # (AUTO) 0.1 10^3/uL (0.0-0.1); BASOPHILS % (AUTO) 0.8 %; EOSINOPHILS # (AUTO) 0.2 10^3/uL (0.0-0.7); HGB - HEMOGLOBIN 14.7 g/dL (12.0-16.0); LYMPHOCYTES # (AUTO) 2.1 10^3/uL (1.5-3.5); LYMPHOCYTES % (AUTO) 33.8 %; MEAN CORPUSCULAR HEMOGLOBIN 28.7 pg (27.0-31.0); MEAN CORPUSCULAR HGB CONC 32.6 g/dL (32.0-36.0); MEAN CORPUSCULAR VOLUME 88.1 fL (81.0-99.0); MEAN PLATELET VOLUME 8.6 fL (7.9-10.8); MONOCYTES # (AUTO) 0.5 10^3/uL (0.0-1.0); NEUTROPHILS # (AUTO) 3.4 10^3/uL (1.5-6.6); NEUTROPHILS % (AUTO) 54.1 %; PLT - PLATELET COUNT 280 10^3/uL (130-450); RED BLOOD COUNT 5.12 10^6/uL (4.20-5.40); RED CELL DISTRIBUTION WIDTH 16.3 % (12.0-15.0); WHITE BLOOD COUNT 6.3 x10^3/uL (4.8-10.8)
[2020-05-19 19:18] LABS: CALCIUM 9.5 mg/dL (8.5-10.3); CREATININE 1.2 mg/dL (0.4-1.0)
== END 2020-05-19 23:59 | disposition home or self-care (01) ==
LOC: LAB.WCP 14:39
PROVIDERS: ATTEND Internal Medicine Cardiovascular Disease
DX: I50.9 Heart failure, unspecified (principal)
CPT/HCPCS: 36415; 80048; 83880; 85025

== ENCOUNTER 2020-08-26 08:00 | Outpatient (CLI) | payer OTHER ==
[2020-08-26 19:02] LABS: CALCIUM 9.2 mg/dL (8.5-10.3); CREATININE 1.1 mg/dL (0.4-1.0)
== END 2020-08-26 23:59 | disposition home or self-care (01) ==
LOC: LAB.WCP 08:00
PROVIDERS: ATTEND Family Medicine
DX: I50.9 Heart failure, unspecified (principal)
CPT/HCPCS: 36415; 80048

== ENCOUNTER 2020-11-15 13:20 | Outpatient (CLI) | payer OTHER | END 2020-11-15 13:21 | disposition home or self-care (01) | LOC: DI 13:20 | PROVIDERS: ATTEND Internal Medicine Cardiovascular Disease | DX: I50.9 Heart failure, unspecified (principal); I07.1 Rheumatic tricuspid insufficiency; I27.20 Pulmonary hypertension, unspecified | CPT/HCPCS: 93306 ==

== ENCOUNTER 2021-10-26 14:39 | Outpatient (CLI) | payer OTHER, MEDICARE ==
[2021-10-26 15:04] LABS: ALBUMIN 4.1 g/dL (3.2-5.5); ALBUMIN/GLOBULIN RATIO 1.1 (1.0-2.2); BILIRUBIN,TOTAL 0.7 mg/dL (0.2-1.0); CALCIUM 9.7 mg/dL (8.5-10.3); CREATININE 1.4 mg/dL (0.4-1.0); POTASSIUM 4.7 mmol/L (3.5-5.0); TOTAL PROTEIN 7.8 g/dL (6.7-8.2)
== END 2021-10-26 14:40 | disposition home or self-care (01) ==
LOC: LAB 14:39
PROVIDERS: ATTEND Internal Medicine Cardiovascular Disease
DX: I50.9 Heart failure, unspecified (principal)
CPT/HCPCS: 36415; 80053; 83880

== ENCOUNTER 2021-11-14 14:08 | Outpatient (CLI) | payer MEDICARE ==
[2021-11-14 20:06] LABS: CALCIUM 9.5 mg/dL (8.5-10.3); CREATININE 1.5 mg/dL (0.4-1.0); POTASSIUM 5.4 mmol/L (3.5-5.0)
== END 2021-11-14 14:09 | disposition home or self-care (01) ==
LOC: LAB.S 14:08
PROVIDERS: ATTEND Internal Medicine Cardiovascular Disease
DX: I50.9 Heart failure, unspecified (principal)
CPT/HCPCS: 36415; 80048

== ENCOUNTER 2021-12-14 14:19 | Outpatient (CLI) | payer MEDICARE ==
[2021-12-14 20:27] LABS: ALBUMIN 3.9 g/dL (3.2-5.5); CALCIUM 9.5 mg/dL (8.5-10.3); CREATININE 1.4 mg/dL (0.4-1.0); PHOSPHORUS 3.2 mg/dL (2.5-4.6); POTASSIUM 4.5 mmol/L (3.5-5.0)
== END 2021-12-14 14:20 | disposition home or self-care (01) ==
LOC: LAB.S 14:19
PROVIDERS: ATTEND Internal Medicine Cardiovascular Disease
DX: I50.22 Chronic systolic (congestive) heart failure (principal)
CPT/HCPCS: 36415; 80048; 80069

== ENCOUNTER 2022-01-16 12:32 | Outpatient (CLI) | payer MEDICARE | END 2022-01-16 12:33 | disposition home or self-care (01) | LOC: DI 12:32 | PROVIDERS: ATTEND Internal Medicine Cardiovascular Disease | DX: I50.9 Heart failure, unspecified (principal); I27.20 Pulmonary hypertension, unspecified | CPT/HCPCS: 93306 ==